=== PATIENT | female | born 1955 | race Caucasian/White ===

== ENCOUNTER 2016-05-29 12:06 | Emergency (ER) | payer OTHER ==
[2016-05-29] MEDS ORDERED: Vancomycin 1GM/ Ns 250ML*** 250 ML IV ONE ×2 (12:46→12:56)
[2016-05-29] MEDS ORDERED: Adacel Vial IM ONE ×2 (12:47→12:57)
--- NOTE | 2016-05-29 12:53 | ERPHSYRPT ---
- History of Present Illness Time Seen by Provider: 05/29/16 12:45 Source: patient Exam Limitations: no limitations Patient Subjective Stated Complaint: CAT BITE ON LEFT HAND ON TUESDAY AND NOW HAVING SWELLING AND REDNESS UP LEFT HAND AND ARM Triage Nursing Assessment: LEFT HAND SWOLLEN AND RED. REDNESS EXTENDS UP ENTIRE ARM. Physician History: This is a 61-year-old white female who arrives with complaint of swelling of her dorsal left hand radiating up her dorsal left forearm with erythema symptoms going on since Tuesday 3 days ago. Patient states she was bitten by a cat she has swelling and erythema on her left dorsal hand and forearm. She denies any other problems she has no vomiting no diarrhea no fevers. Past medical history includes high blood pressure, COPD, hip replacement. Occurred: days ago (3 days ago) Method of Injury: other (bitten by her friend's kitten) Extremities Pain Location: forearm: left, wrist: left, hand: left Modifying Factors: Improves With: nothing Associated Symptoms: other (erythema and mild edema to dorsal left hand and forearm) Allergies/Adverse Reactions: No Known Drug Allergies Allergy (Unverified 05/29/16 12:36) Home Medications: Albuterol 8 gm Mdi Hfa [Ventolin Hfa MDI] 8 gm IH DAILY PRN PRN 05/29/16 [ History] Lisinopril [Zestril] 5 mg PO DAILY 05/29/16 [History] Hx Tetanus, Diphtheria Vaccination/Date Given: No Hx Influenza Vaccination/Date Given: No Hx Pneumococcal Vaccination/Date Given: No - Review of Systems Constitutional: No Fever, No Chills Eyes: No Symptoms Ears, Nose, & Throat: No Symptoms Respiratory: No Cough, No Dyspnea Cardiac: No Chest Pain, No Edema, No Syncope Abdominal/Gastrointestinal: No Abdominal Pain, No Nausea, No Vomiting, No Diarrhea Genitourinary Symptoms: No Dysuria Musculoskeletal: Other (erythema and mild edema dorsal left hand and forearm) Skin: Other (erythema and mild edema dorsal left hand and forearm) Neurological: No Dizziness, No Focal Weakness, No Sensory Changes Psychological: No Symptoms Endocrine: No Symptoms All Other Systems: Reviewed and Negative - Past Medical History Pertinent Past Medical History: Yes Cardiac History: Hypertension Respiratory History: COPD - Past Surgical History Past Surgical History: Yes Musculoskeletal: Joint Replacement Other Surgical History: BILAT HIP REPLACEMENT - Social History Smoking Status: Current every day smoker How long have you smoked: 40 YRS Exposure to second hand smoke: Yes Drug Use: none Patient Lives Alone: No - Nursing Vital Signs Nursing Vital Signs: Initial Vital Signs Temperature 98.9 F Temperature Source Oral Pulse Rate 100 Respiratory Rate 18 Blood Pressure [Right Arm] 150/76 Pain Intensity 8 - Physical Exam General Appearance: alert Eyes, Ears, Nose, Throat Exam: moist mucous membranes Neck Exam: non-tender, supple Cardiovascular/Respiratory Exam: chest non-tender, normal breath sounds, regular rate/rhythm, no respiratory distress Abdominal Exam: non-tender, No guarding Back Exam: normal inspection, No vertebral tenderness Shoulder Exam: normal inspection, non-tender, no evidence of injury, normal ROM Elbow/Forearm Exam: non-tender, no evidence of injury, normal ROM, No normal inspection (erythema and mild edema dorsal left forearmtenderness with palpation ) Wrist Exam: normal inspection, normal ROM Hand Exam: No normal inspection (erythema and mild edema dorsal left hand tender with palpation), No non-tender DTR - Upper Extremity Exam: tricep (R): 2+, tricep (L): 2+ Neuro/Tendon Exam: normal sensation, normal motor functions Mental Status Exam: alert, oriented x 3, cooperative Skin Exam: normal color, warm, dry SpO2 Interpretation: normal (94%) SpO2: 94 Oxygen Delivery: Room Air - Course Nursing assessment & vital signs reviewed: Yes Ordered Tests: Active Orders 24 hr Category Date Time Status IV Insertion STAT Care 05/29/16 12:46 Active BLOOD CULTURE Stat Lab 05/29/16 13:00 Received BMP Stat Lab 05/29/16 13:05 Completed CBC W DIFF Stat Lab 05/29/16 13:05 Completed Manual Differential NC Stat Lab 05/29/16 13:05 Completed Medication Summary Generic Name Dose Route Start Last Admin Trade Name Freq PRN Reason Stop Dose Admin Vancomycin HCl 250 mls @ 167 mls/hr 05/29/16 12:46 05/29/16 13:04 Vancomycin 1gm/ Ns 250ml IV 05/29/16 14:15 167 mls/hr STAT ONE Administration Discontinued Medications Generic Name Dose Route Start Last Admin Trade Name Freq PRN Reason Stop Dose Admin Diphtheria/Tetanus/Acell Pertussis 0.5 ml 05/29/16 12:47 05/29/16 13:04 Adacel Vial IM 05/29/16 12:48 0.5 ml .ONCE ONE Administration Diphtheria/Tetanus/Acell Pertussis Confirm 05/29/16 12:57 Adacel Vial Administered 05/29/16 12:58 Dose 0.5 ml IM .STK-MED ONE Vancomycin HCl Confirm 05/29/16 12:56 Vancomycin 1gm/ Ns 250ml Administered 05/29/16 12:57 Dose 250 mls @ ud IV .STK-MED ONE Sodium Chloride 500 mls @ 999 mls/hr 05/29/16 12:58 05/29/16 13:04 Sodium Chloride 0.9% 1000 Ml IV 05/29/16 13:28 999 mls/hr .Q31M STA Administration Sodium Chloride Confirm 05/29/16 13:02 Sodium Chloride 0.9% 1000 Ml Administered 05/29/16 13:03 Dose 1,000 mls @ ud .ROUTE .STK-MED ONE Lab/Rad Data: Laboratory Result Diagrams 05/29/16 13:05 05/29/16 13:05 Laboratory Results 05/29/16 05/29/16 Range/Units 13:05 13:05 WBC 7.8 (4.0-10.5) K/mm3 RBC 3.45 L (4.1-5.4) M/mm3 Hgb 13.7 (12.0-16.0) gm/dl Hct 40.3 (35-47) % MCV 116.8 H (78-100) fl MCH 39.7 H (26-32) pg MCHC 34.0 (32-36) g/dl RDW 13.8 (11.5-14.0) % Plt Count 87 L (150-450) K/mm3 MPV 10.3 H (6-9.5) fl Segmented Neutrophils 81 H (36.0-66.0) % Band Neutrophils 2 (0.0-2.0) % Lymphocytes (Manual) 5 L (24-44) % Monocytes (Manual) 12 (0.0-12.0) % Differential Comment NORMAL Platelet Estimate DECREASED (NORMAL) Sodium 132 L (136-145) mEq/L Potassium 3.5 (3.5-5.1) mEq/L Chloride 96 L (98-107) mEq/L Carbon Dioxide 25.3 (21-32) mEq/L Anion Gap 14.0 (5-15) MEQ/L BUN 7 L (9-20) mg/dL Creatinine 0.61 (0.55-1.30) mg/dl Estimated GFR > 60 ML/MIN Glucose 154 H (70-110) MG/DL Calcium 8.4 L (8.5-10.1) mg/dL - Progress Progress: improved Progress Note: 05/29/16 12:51 This is a 61-year-old white female with history of high blood pressure she arrives with complaint of erythema and mild edema to her left dorsal hand and forearm symptoms for 3 days she states she was bitten by a small kitten 3 days ago. She is tender with palpation in the above-mentioned area. There is erythema to the dorsal left hand and forearm the area is not hot. There is slight edema in the area. She has erythema which extends up to the left dorsal elbow. Will go ahead and obtain CBC BMP blood cultures will give patient vancomycin 1 g IV. Anticipate home with Augmentin 500 mg orally 3 times a day for 10 days. Patient will be given a list of local physicians for follow-up. 05/29/16 13:46 Patient apparently is on lisinopril 5 mg a day. Will go ahead and give her lisinopril 5 mg #10 as a courtesy. She apparently is out of her blood pressure medications. 05/29/16 13:52 will also write for the patients albuterol inhaler as a courtesy. - Departure Time of Disposition: 13:45 Departure Disposition: Home Clinical Impression: Cellulitis and abscess of hand, Cellulitis of forearm Cat bite of left hand Qualifiers: Encounter type: initial encounter Qualified Code(s): S61.452A - Open bite of left hand, initial encounter Condition: Fair Critical Care Time: No Instructions: Animal Bites Additional Instructions: Return home. Plenty of fluids. Augmentin 500 mg orally 3 times a day for 10 days. Follow-up with your family doctor (list). Return for acute distress or for severe symptoms.
[2016-05-29] MEDS ORDERED: Sodium Chloride 0.9% 1000 ML 1,000 ML ONE (13:02)
[2016-05-29 13:15] LABS: Mean Cell Volume 116.8 fl (78-100); Mean Corpuscular Hemoglobin 39.7 pg (26-32); Mean Platelet Volume 10.3 fl (6-9.5); Platelet Count 87 K/mm3 (150-450); Red Blood Count 3.45 M/mm3 (4.1-5.4); Red Cell Distribution Width 13.8 % (11.5-14.0); White Blood Count 7.8 K/mm3 (4.0-10.5)
[2016-05-29 13:34] LABS: BLOOD UREA NITROGEN 7 mg/dL (9-20); CHLORIDE 96 mEq/L (98-107); Carbon Dioxide 25.3 mEq/L (21-32); Glucose 154 MG/DL (70-110); Potassium 3.5 mEq/L (3.5-5.1); SODIUM 132 mEq/L (136-145)
[2016-05-29 13:47] LABS: BAND 2 % (0.0-2.0); Platelet Estimate DECREASED (NORMAL); Total Cells Counted 100
[2016-05-29 15:06] VITALS: BP 132/72; PULSE 98; O2SAT 98
== END 2016-05-29 15:13 | disposition home or self-care (01) ==
LOC: ED 12:06
DX: S61.452A Open bite of left hand, initial encounter (principal); L02.512 Cutaneous abscess of left hand; L03.114 Cellulitis of left upper limb; W55.01XA Bitten by cat, initial encounter
CPT/HCPCS: 36000; 36415; 80048; 85025; 87040; 90471; 90715; 96360; 96361; 96365; 96367; 99283; J3370

== ENCOUNTER 2016-08-19 15:19 | Emergency (ER) | payer OTHER ==
--- NOTE | 2016-08-19 15:57 | ERPHSYRPT ---
- History of Present Illness Time Seen by Provider: 08/19/16 15:46 Source: patient Patient Subjective Stated Complaint: mid nonradiating back pain for 2 days Triage Nursing Assessment: mid nonradiating back pain for 2 days. went to yesterday for cellulitis to rt lower extrem and when she got home had mid lower back pain. denies injury. abd firm and distended--hx ascites with last tap approx one month ago. no fever. 'i get this back pain when i have extra fluid on board' Physician History: State mid back pain began yesterday, spasm, non-radiating, similar to previous but not quite as severe. Pt. with liver cirrhosis but stopped drinking 3 months ago. Pt. saw [facility] for cellulitist and recent wt. gain of 30lbs over past couple weeks. Pt. with abdominal paracentisis, in which 5 L was taken off at [facility] 3-4 weeks ago. No recent fever, chills, but noted nasal congestion and dry cough. Stated increase pain with difficulty ambulating, in which she usually uses a can/walker. Denies any chest pain, but noted some SOB, but no dizziness or weakness. Pt. lives with her sister. R lower extremity with swelling/redness of entire leg. Timing/Duration: day(s) (2), constant, gradual onset Method of Injury: unknown Quality: pressure Back Pain Location: T-spine, lumbar spine Severity of Pain-Max: moderate Severity of Pain-Current: moderate Modifying Factors: Improves With: immobilization (improves), movement (worsens) Associated Symptoms: numbness in legs/feet, lower back pain, muscle spasms, No fever, No chills, No urinary incontinence, No loss of bowel control, No problems urinating, No dizziness Previous symptoms: same symptoms as today Allergies/Adverse Reactions: No Known Drug Allergies Allergy (Unverified 08/19/16 15:25) Home Medications: Fluticasone/Vilanterol [Breo Ellipta 100-25 Mcg INH] 1 each IH DAILY 08/19/16 [ History] Furosemide 20 mg [Lasix 20 mg] 20 mg PO BID 08/19/16 [History] Lactulose [Lactulose 20 gm/30Ml Ud Cup] 10 gm PO TID 08/19/16 [History] Melatonin 3 mg PO HS 08/19/16 [History] Midodrine HCl 5 mg [Proamatine 5 mg] 5 mg PO BID 08/19/16 [History] Omeprazole 20 MG [Prilosec 20 mg] 20 mg PO BID 08/19/16 [History] Prednisone 10 mg [Deltasone 10 mg] 10 mg PO DAILY 08/19/16 [History] Rifaximin [Xifaxan] 550 mg PO BID 08/19/16 [History] Spironolactone 50 mg PO DAILY 08/19/16 [History] Tiotropium [place] Inhaler [Spiriva 18 Mcg/Cap Inhaler] 1 ea IH DAILY 02/25 [History] Hx Tetanus, Diphtheria Vaccination/Date Given: Yes Hx Influenza Vaccination/Date Given: No Hx Pneumococcal Vaccination/Date Given: No Immunizations Up to Date: Yes - Review of Systems Constitutional: Weakness, No Fever, No Chills Eyes: No Symptoms Ears, Nose, & Throat: Nose Congestion, Nose Discharge, No Loose Teeth, No Throat Swelling Respiratory: Cough, Dyspnea Cardiac: No Chest Pain, No Edema, No Syncope Abdominal/Gastrointestinal: Abdominal Pain, Nausea, Other (Distention), No Vomiting, No Diarrhea Genitourinary Symptoms: No Symptoms, No Dysuria Musculoskeletal: No Back Pain, No Neck Pain Skin: Cellulitis, No Rash Neurological: No Dizziness, No Focal Weakness, No Sensory Changes Psychological: No Symptoms Endocrine: No Symptoms All Other Systems: Reviewed and Negative - Past Medical History Pertinent Past Medical History: Yes Cardiac History: Hypertension Respiratory History: COPD Other Medical History: cirrohosis - Past Surgical History Past Surgical History: Yes Musculoskeletal: Joint Replacement Other Surgical History: BILAT HIP REPLACEMENT - Social History Smoking Status: Current every day smoker How long have you smoked: 40 YRS Exposure to second hand smoke: No Drug Use: none Patient Lives Alone: No Significant Family History: no pertinent family hx - Nursing Vital Signs Temperature: 98.2 F Temperature Source: Oral Pulse Rate: 115 Respiratory Rate: 24 Pain Intensity: 10 - Physical Exam General Appearance: mild distress Eye Exam: PERRL/EOMI, eyes nml inspection Ears, Nose, Throat Exam: other (icteric sclera) Neck Exam: normal inspection, non-tender, supple, full range of motion, No meningismus, No midline tenderness Respiratory Exam: normal breath sounds, rhonchi, other (shallow BS), No chest tenderness Cardiovascular Exam: regular rate/rhythm, normal heart sounds Gastrointestinal Exam: tenderness (mild general), distention, No rebound, No hernia Pelvic Exam: not done Rectal Exam: deferred Back Exam: vertebral tenderness (lower thoraci/upper lumbar area), decreased range of motion, muscle spasm, point tenderness Extremity Exam: 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, 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), other (skin warm but difficulty detecting pedal pulses due to edema to R leg) Skin Exam: warm, other (erythema of entire RLE throughout) SpO2 Interpretation: normal SpO2: 100 Oxygen Delivery: Room Air - Radiology Exams L-Spine X-ray Interpretation: Teleradiologist Report, No Fracture T-Spine X-ray Interpretation: Teleradiologist Report, No Fracture Ordered Tests: Active Orders 24 hr Category Date Time Status Cath for Specimen-Straight STAT Care 08/19/16 16:03 Active Catheter-[place] STAT Care 08/19/16 16:03 Active IV Insertion STAT Care 08/19/16 16:03 Active LUMBAR COMPLETE (MIN 4 VIEWS) Stat Exams 08/19/16 16:05 Completed THORACIC SPINE (AP,LAT,SWIMM) Stat Exams 08/19/16 16:05 Completed BMP Stat Lab 08/19/16 16:15 Completed CBC W DIFF Stat Lab 08/19/16 16:15 Completed HEPATIC FUNCTION PANEL Stat Lab 08/19/16 16:15 Completed Manual Differential NC Stat Lab 08/19/16 16:15 Completed UA Stat Lab 08/19/16 17:30 Completed Medication Summary Discontinued Medications Generic Name Dose Route Start Last Admin Trade Name Austinq PRN Reason Stop Dose Admin Hydromorphone HCl 1 mg 08/19/16 16:03 08/19/16 16:21 Hydromorphone 1 Mg/Ml Ampule IV 08/19/16 16:04 1 mg STAT ONE Administration Hydromorphone HCl Confirm 08/19/16 16:14 Hydromorphone 1 Mg/Ml Ampule Administered 08/19/16 16:15 Dose 1 mg .ROUTE .STK-MED ONE Cefazolin Sodium/Dextrose 50 mls @ 100 mls/hr 08/19/16 17:07 08/19/16 17:33 Cefazolin 2 Gm-D5w Bag IV 08/19/16 17:36 100 mls/hr STAT ONE Administration Ceftriaxone Sodium/Dextrose Confirm 08/19/16 17:14 Rocephin 2 Gm-D5w 50ml Bag Administered 08/19/16 17:15 Dose 2 g in 50 mls @ ud IV .STK-MED ONE Cefazolin Sodium/Dextrose Confirm 08/19/16 17:20 Kefzol 1 Gm/50 Ml Premix Administered 08/19/16 17:21 Dose 100 mls @ ud IV .STK-MED ONE Lab/Rad Data: Laboratory Result Diagrams 08/19/16 16:15 08/19/16 16:15 Laboratory Results 08/19/16 08/19/16 08/19/16 Range/Units 17:30 16:15 16:15 WBC 5.5 (4.0-10.5) K/mm3 RBC 2.42 L (4.1-5.4) M/mm3 Hgb 9.8 L (12.0-16.0) gm/dl Hct 29.1 L (35-47) % MCV 120.2 H (78-100) fl MCH 40.4 H (26-32) pg MCHC 33.7 (32-36) g/dl RDW 14.9 H (11.5-14.0) % Plt Count 87 L (150-450) K/mm3 MPV 9.2 (6-9.5) fl Segmented Neutrophils 76 H (36.0-66.0) % Lymphocytes (Manual) 20 L (24-44) % Monocytes (Manual) 3 (0.0-12.0) % Eosinophils (Manual) 1 (0.00-3.0) % Differential Comment ABNORMAL Toxic Granulation 2+ Platelet Estimate DECREASED (NORMAL) Anisocytosis 1+ Macrocytosis 1+ Sodium 131 L (136-145) mEq/L Potassium 3.6 (3.5-5.1) mEq/L Chloride 96 L (98-107) mEq/L Carbon Dioxide 26.6 (21-32) mEq/L Anion Gap 11.7 (5-15) MEQ/L BUN 26 H (9-20) mg/dL Creatinine 1.42 H (0.55-1.30) mg/dl Estimated GFR 40 ML/MIN Glucose 103 (70-110) MG/DL Calcium 8.9 (8.5-10.1) mg/dL Total Bilirubin 5.7 H (0.2-1.0) mg/dL Direct Bilirubin 3.75 H (0.0-0.2) MG/DL AST 43 H (15-37) U/L ALT 41 (12-78) U/L Alkaline Phosphatase 305 H (46-116) U/L Serum Total Protein 7.1 (6.4-8.2) gm/dL Albumin 3.0 L (3.4-5.0) g/dL Ur Collection Type CATH Urine Color DARK YELLOW (YELLOW) Urine Appearance CLEAR (CLEAR) Urine pH 5.0 (5-6) Ur Specific [place] 1.010 (1.005-1.025) Urine Protein NEGATIVE (Negative) Urine Glucose (UA) NEGATIVE (NEGATIVE) mg/dL Urine Ketones NEGATIVE (NEGATIVE) Urine Nitrite NEGATIVE (NEGATIVE) Urine Bilirubin SMALL (NEGATIVE) Urine Urobilinogen 0.2 (0-1) mg/dL Urine WBC (Auto) NEGATIVE (NEGATIVE) Urine RBC (Auto) NEGATIVE (0-5) [place]/ul Specimen Received 08/19/16 1750 - Progress Progress: improved Progress Note: 08/19/16 19:11 Pt. given Dilaudid for pain and Ancef for IV abtc. Counseled pt/family regarding: lab results, diagnosis, rad results - Departure Time of Disposition: 19:12 Departure Disposition: Transfer ( [facility]), Extended Care Facility Clinical Impression: Cellulitis of right leg, Liver cirrhosis, Back pain Condition: Stable Critical Care Time: No
[2016-08-19] MEDS ORDERED: Hydromorphone 1 mg/ml Ampule IV ONE ×2 (16:03→21:22)
[2016-08-19] MEDS ORDERED: Hydromorphone 1 mg/ml Ampule ONE ×2 (16:14→21:29)
[2016-08-19 16:28] LABS: Mean Cell Volume 120.2 fl (78-100); Mean Platelet Volume 9.2 fl (6-9.5); Platelet Count 87 K/mm3 (150-450); Red Blood Count 2.42 M/mm3 (4.1-5.4); Red Cell Distribution Width 14.9 % (11.5-14.0); White Blood Count 5.5 K/mm3 (4.0-10.5)
[2016-08-19 16:29] LABS: Mean Corpuscular Hemoglobin 40.4 pg (26-32)
[2016-08-19 16:46] LABS: ANION GAP 11.7 MEQ/L (5-15); BILIRUBIN,TOTAL 5.7 mg/dL (0.2-1.0); Carbon Dioxide 26.6 mEq/L (21-32); Direct Bilirubin 3.75 MG/DL (0.0-0.2); Potassium 3.6 mEq/L (3.5-5.1); Total Protein 7.1 gm/dL (6.4-8.2)
--- NOTE | 2016-08-19 16:52 | XRAY ---
Indication: Back pain. No known injury. Comparison: None Frontal/lateral thoracic spine demonstrates 12 typical rib bearing thoracic vertebral segments in normal alignment with mild osteopenia and remote-appearing T11 superior endplate fracture with less than 20% height loss. Incidental mediastinal calcified nodes. No other bony, articular, or soft tissue abnormalities.
[2016-08-19 16:53] LABS: Eosinophil 1 % (0.00-3.0); Total Cells Counted 100
[2016-08-19 16:54] LABS: ANISOCYTOSIS 1+; Macrocytosis 1+; Platelet Estimate DECREASED (NORMAL); Toxic Granulation 2+
--- NOTE | 2016-08-19 16:54 | XRAY ---
Indication: Back pain. No known injury. Comparison: None 5 views of the lumbar spine demonstrates 5 lumbar vertebral segments in normal alignment with mild osteopenia, mild L4-S1 disc space narrowing, bilateral L4-S1 degenerative facet arthropathy, remote appearing L4 superior endplate fracture with approximately 25% height loss, previous bilateral hip arthroplasty, and moderate aortoiliac calcifications. No acute fracture or subluxation. Impression: Nonacute lumbar spine with chronic features.
[2016-08-19] MEDS ORDERED: CEFAZOLIN 2 GM-D5W BAG** 50 ML IV ONE (17:07)
[2016-08-19] MEDS ORDERED: ROCEPHIN 2 Gm-D5w 50ML BAG** 0 G/0 ML IVPB IV ONE (17:14)
[2016-08-19] MEDS ORDERED: KEFZOL 1 GM/50 ML PREMIX** 50 ML IV ONE (17:20)
[2016-08-19 17:55] LABS: COMPLETE URINE MICROSCOPIC? NO; Collection Type CATH
[2016-08-19 19:48] VITALS: BP 161/83; PULSE 114; O2SAT 98
[2016-08-19] MEDS ORDERED: Phenergan 25 MG INJ IV ONE (21:22)
[2016-08-19] MEDS ORDERED: Phenergan 25 MG INJ ONE (21:29)
== END 2016-08-20 00:19 | disposition short-term general hospital (02) ==
LOC: ED 15:19
DX: L03.115 Cellulitis of right lower limb (principal); K74.60 Unspecified cirrhosis of liver; M54.9 Dorsalgia, unspecified; M54.89 Other dorsalgia; Z79.899 Other long term (current) drug therapy
CPT/HCPCS: 36000; 36415; 51702; 72072; 72110; 80048; 80076; 81002; 85025; 96365; 96374; 96375; 96376; 99285; J0690; J0696; J1170; J2550; P9612

== ENCOUNTER 2016-09-12 14:42 | Observation (INO) | payer OTHER ==
[2016-09-12] MEDS ORDERED: BUMEX 1 MG IV ONE ×2 (15:21→18:01)
[2016-09-12] MEDS ORDERED: BUMEX 1 MG ONE ×2 (15:39→18:11)
[2016-09-12 15:42] LABS: ADD URINE CULTURE? NO (NO); COMPLETE URINE MICROSCOPIC? NO; Collection Type CATH; Ph 5.5 (5-6)
[2016-09-12 15:45] LABS: BASOPHIL % 0.3 % (0.0-0.4); Eosinophil % 1.4 % (0.00-5.0); Granulocytes % 71.2 % (36.0-66.0); Lymphocytes % 12.5 % (24.0-44.0); Mean Cell Volume 115.8 fl (78-100); Mean Corpuscular Hemoglobin 39.2 pg (26-32); Mean Platelet Volume 9.5 fl (6-9.5); Monocytes % 14.6 % (0.0-12.0); Platelet Count 146 K/mm3 (150-450); Red Cell Distribution Width 13.8 % (11.5-14.0); White Blood Count 8.6 K/mm3 (4.0-10.5)
[2016-09-12 16:06] LABS: ALBUMIN 2.5 g/dL (3.4-5.0); ALKALINE PHOSPHATASE 290 U/L (46-116); BLOOD UREA NITROGEN 27 mg/dL (9-20); CHLORIDE 94 mEq/L (98-107); Carbon Dioxide 23.5 mEq/L (21-32); Glucose 113 MG/DL (70-110); LIPASE 340 U/L (73-393); Potassium 3.5 mEq/L (3.5-5.1); SGOT/AST 45 U/L (15-37); SGPT/ALT 22 U/L (12-78); SODIUM 129 mEq/L (136-145); Total Protein 7.1 gm/dL (6.4-8.2)
[2016-09-12 16:11] LABS: TROPONIN < 0.017 ng/ml (0.000-0.056)
[2016-09-12] MEDS ORDERED: Enulose 10 GM/15 ML PO STA (16:27)
[2016-09-12] MEDS ORDERED: Vancomycin 1GM/ Ns 250ML*** 1 GM/250 ML IVPB IV ONE (16:28)
[2016-09-12] MEDS ORDERED: LACTULOSE 20 GM/30ML UD CUP ONE ×2 (16:49→21:40)
[2016-09-12] MEDS ORDERED: Vancomycin 1GM/ Ns 250ML*** 250 ML IV ONE (16:52)
[2016-09-12] MEDS ORDERED: DUONEB 0.5-3 MG/3 ml Neb IH ONE ×2 (18:01→18:14)
--- NOTE | 2016-09-12 18:01 | ERPHSYRPT ---
- History of Present Illness Time Seen by Provider: 09/12/16 15:00 Historian: patient Exam Limitations: clinical condition Patient Subjective Stated Complaint: increased swelling and leaking of bilat lower extrem Triage Nursing Assessment: pt states she has increased fluid draining off of rt lower leg. saw dr tinajero on tuesday and legs were the same as far as size but rt lower leg is leaking and wasnt on tuesday. redness noted to lt lower leg. pedal pulses faint but present. abd firm and round. bs present. last paracentesis was 1 month ago Physician History: PATIENT WITH HISTORY CIRRHOSIS, [facility], STATES SHE HAS BEEN OF HER DIURETICS FOR 1 WEEK, COMPLAINS OF MARKED SWELLING IN LEGS WITH INCREASING ABDOMINAL ASCITES. HAS DYSPNEA UPON EXERTION. DENIES CHEST PAIN, DIAPHORESIS. Timing/Duration: day(s) Activities at Onset: activity Abdominal Pain Onset Location: other (INCREASED ASCITES) Severity of Pain-Max: mild Severity of Pain-Current: mild Modifying Factors: Improves With: movement Associated Symptoms: shortness of breath, other (GENERALIZED SWELLING) Previous symptoms: same symptoms as today Allergies/Adverse Reactions: No Known Drug Allergies Allergy (Unverified 09/12/16 14:55) Home Medications: Furosemide 20 mg [Lasix 20 mg] 20 mg PO BID 08/19/16 [History] Lactulose [Lactulose 20 gm/30Ml Ud Cup] 10 gm PO TID 08/19/16 [History] Melatonin 3 mg PO HS 08/19/16 [History] Midodrine HCl 5 mg [Proamatine 5 mg] 5 mg PO BID 08/19/16 [History] Omeprazole 20 MG [Prilosec 20 mg] 20 mg PO BID 08/19/16 [History] Rifaximin [Xifaxan] 550 mg PO BID 08/19/16 [History] Spironolactone 50 mg PO DAILY 08/19/16 [History] Tiotropium [place] Inhaler [Spiriva 18 Mcg/Cap Inhaler] 1 ea IH DAILY 02/25 [History] Hx Tetanus, Diphtheria Vaccination/Date Given: Yes Hx Influenza Vaccination/Date Given: No Hx Pneumococcal Vaccination/Date Given: No - Review of Systems Constitutional: No Fever, No Chills Eyes: No Symptoms Ears, Nose, & Throat: No Symptoms Respiratory: No Cough, No Dyspnea Cardiac: No Chest Pain, No Edema, No Syncope Abdominal/Gastrointestinal: Other (ASCITES), No Abdominal Pain, No Nausea, No Vomiting, No Diarrhea Genitourinary Symptoms: No Dysuria Musculoskeletal: Other (SWELLING IN LEGS), No Back Pain, No Neck Pain Skin: No Rash Neurological: No Dizziness, No Focal Weakness, No Sensory Changes Psychological: No Symptoms Endocrine: No Symptoms All Other Systems: Reviewed and Negative - Past Medical History Pertinent Past Medical History: Yes Cardiac History: Hypertension Respiratory History: COPD Other Medical History: cirrohosis - Past Surgical History Past Surgical History: Yes Musculoskeletal: Joint Replacement Other Surgical History: BILAT HIP REPLACEMENT - Social History Smoking Status: Current every day smoker How long have you smoked: 40 YRS Exposure to second hand smoke: No Drug Use: none Patient Lives Alone: No Significant Family History: no pertinent family hx - Nursing Vital Signs Nursing Vital Signs: Initial Vital Signs Temperature 98.2 F Temperature Source Oral Pulse Rate 125 Respiratory Rate 28 Blood Pressure [] 128/63 Pain Intensity 2 - Physical Exam General Appearance: mild distress Eye Exam: PERRL/EOMI, eyes nml inspection Ears, Nose, Throat Exam: normal ENT inspection, pharynx normal, moist mucous membranes Neck Exam: normal inspection, non-tender, supple, full range of motion Respiratory Exam: normal breath sounds, lungs clear, diminished breath sounds, crackles/rales (AT BASES), No respiratory distress Cardiovascular Exam: regular rate/rhythm, normal heart sounds Gastrointestinal/Abdomen Exam: soft, normal bowel sounds, other (DIFFUSE ASCITES WITH DISTENSION, NONTENDER), No tenderness, No mass Back Exam: normal inspection, normal range of motion, No CVA tenderness, No vertebral tenderness Extremity Exam: normal inspection, normal range of motion, pelvis stable Neurologic Exam: alert, oriented x 3, cooperative, normal mood/affect, nml cerebellar function, sensation nml, No motor deficits Skin Exam: normal color, warm, dry SpO2: 100 Oxygen Delivery: Room Air - Course EKG Interpreted by Me: RATE, Sinus Tach, NORMAL AXIS, Non-specific ST Changes - Radiology Exams Chest X-ray Interpretation: Discussed w/ radiologist (BILATERAL PLEURAL EFFUSIONS) Ordered Tests: Active Orders 24 hr Category Date Time Status EKG-ER Only STAT Care 09/12/16 15:21 Active EKG-ER Only STAT Care 09/12/16 18:22 Active Jensen [Catheter-[place] Jensen] STAT Care 09/12/16 15:20 Active IV Insertion STAT Care 09/12/16 15:17 Active CHEST 1 VIEW (PORTABLE) Stat Exams 09/12/16 15:18 Completed AMYLASE Stat Lab 09/12/16 15:25 Completed BLOOD CULTURE Stat Lab 09/12/16 15:31 Received CBC W DIFF Stat Lab 09/12/16 15:25 Completed CMP Stat Lab 09/12/16 15:25 Completed Ethyl Alcohol,Urine Stat Lab 09/12/16 15:25 Completed LIPASE Stat Lab 09/12/16 15:25 Completed TROPONIN Stat Lab 09/12/16 15:25 Completed UA W/RFX UR CULTURE Stat Lab 09/12/16 15:25 Completed Respiratory Nebulizer STAT RT 09/12/16 18:01 Completed Respiratory Nebulizer UD RT 09/12/16 19:10 Completed Transfer Order Routine Transfer 09/12/16 15:20 Ordered Medication Summary Discontinued Medications Generic Name Dose Route Start Last Admin Trade Name Freq PRN Reason Stop Dose Admin Albuterol/Ipratropium 3 ml 09/12/16 18:01 09/12/16 18:15 Duoneb 0.5-3 Mg/3 Ml Neb IH 09/12/16 18:02 3 ml STAT ONE Administration Albuterol/Ipratropium Confirm 09/12/16 18:14 Duoneb 0.5-3 Mg/3 Ml Neb Administered 09/12/16 18:15 Dose 3 ml IH .STK-MED ONE Bumetanide 1 mg 09/12/16 15:21 09/12/16 15:40 Bumex 1 Mg IV 09/12/16 15:22 1 mg STAT ONE Administration Bumetanide Confirm 09/12/16 15:39 Bumex 1 Mg Administered 09/12/16 15:40 Dose 1 mg .ROUTE .STK-MED ONE Bumetanide 1 mg 09/12/16 18:01 09/12/16 18:12 Bumex 1 Mg IV 09/12/16 18:02 1 mg STAT ONE Administration Bumetanide Confirm 09/12/16 18:11 Bumex 1 Mg Administered 09/12/16 18:12 Dose 1 mg .ROUTE .STK-MED ONE Vancomycin HCl 1 gm in 250 mls @ 167 mls/hr 09/12/16 16:28 09/12/16 16:56 Vancomycin 1gm/ Ns 250ml IV 09/12/16 17:57 167 mls/hr STAT ONE Administration Vancomycin HCl Confirm 09/12/16 16:52 Vancomycin 1gm/ Ns 250ml Administered 09/12/16 16:53 Dose 250 mls @ ud IV .STK-MED ONE Lactulose 30 g 09/12/16 16:27 09/12/16 16:53 Enulose 10 Gm/15 Ml PO 09/12/16 16:28 30 g STAT STA Administration Lactulose Confirm 09/12/16 16:49 Lactulose 20 Gm/30ml Ud Cup Administered 09/12/16 16:50 Dose 40 gm .ROUTE .STK-MED ONE Levalbuterol HCl 1.25 mg 09/12/16 18:50 09/12/16 19:10 Xopenex 1.25 Mg/0.5 Ml Ud Nebule IH 09/12/16 18:51 1.25 mg STAT ONE Administration Levalbuterol HCl Confirm 09/12/16 19:02 Xopenex 1.25 Mg/0.5 Ml Ud Nebule Administered 09/12/16 19:03 Dose 1.25 mg IH .STK-MED ONE Sodium Chloride Confirm 09/12/16 19:02 Sodium Chloride 3 Ml Ud Nebules Administered 09/12/16 19:03 Dose 3 ml IH .STK-MED ONE Lab/Rad Data: Laboratory Result Diagrams 09/12/16 15:25 09/12/16 15:25 Laboratory Results 09/12/16 09/12/16 09/12/16 Range/Units 15:25 15:25 15:25 WBC (4.0-10.5) K/mm3 RBC (4.1-5.4) M/mm3 Hgb (12.0-16.0) gm/dl Hct (35-47) % MCV (78-100) fl MCH (26-32) pg MCHC (32-36) g/dl RDW (11.5-14.0) % Plt Count (150-450) K/mm3 MPV (6-9.5) fl Gran % (36.0-66.0) % Lymphocytes % (24.0-44.0) % Monocytes % (0.0-12.0) % Eosinophils % (0.00-5.0) % Basophils % (0.0-0.4) % Basophils # (0-0.4) Sodium (136-145) mEq/L Potassium (3.5-5.1) mEq/L Chloride (98-107) mEq/L Carbon Dioxide (21-32) mEq/L Anion Gap (5-15) MEQ/L BUN (9-20) mg/dL Creatinine (0.55-1.30) mg/dl Estimated GFR ML/MIN Glucose (70-110) MG/DL Calcium (8.5-10.1) mg/dL Total Bilirubin (0.2-1.0) mg/dL AST (15-37) U/L ALT (12-78) U/L Alkaline Phosphatase (46-116) U/L Ammonia 58 H (11-32) MMOL/l Troponin I (0.000-0.056) ng/ml Serum Total Protein (6.4-8.2) gm/dL Albumin (3.4-5.0) g/dL Amylase (25-115) U/L Lipase (73-393) U/L Ur Collection Type CATH Urine Color YELLOW (YELLOW) Urine Appearance CLEAR (CLEAR) Urine pH 5.5 5.5 (5-6) Ur Specific [place] 1.010 (1.005-1.025) Urine Protein NEGATIVE (Negative) Urine Glucose (UA) NEGATIVE (NEGATIVE) mg/dL Urine Ketones NEGATIVE (NEGATIVE) Urine Nitrite NEGATIVE (NEGATIVE) Urine Bilirubin NEGATIVE (NEGATIVE) Urine Urobilinogen 0.2 (0-1) mg/dL Urine WBC (Auto) NEGATIVE (NEGATIVE) Urine RBC (Auto) NEGATIVE (0-5) [place]/ul Urine Ethyl Alcohol 2 (0.00-20) mg/dl Specimen Received 09/12/16 1540 09/12/16 09/12/16 Range/Units 15:25 15:25 WBC 8.6 (4.0-10.5) K/mm3 RBC 2.60 L (4.1-5.4) M/mm3 Hgb 10.2 L (12.0-16.0) gm/dl Hct 30.1 L (35-47) % MCV 115.8 H (78-100) fl MCH 39.2 H (26-32) pg MCHC 33.9 (32-36) g/dl RDW 13.8 (11.5-14.0) % Plt Count 146 L (150-450) K/mm3 MPV 9.5 (6-9.5) fl Gran % 71.2 H (36.0-66.0) % Lymphocytes % 12.5 L (24.0-44.0) % Monocytes % 14.6 H (0.0-12.0) % Eosinophils % 1.4 (0.00-5.0) % Basophils % 0.3 (0.0-0.4) % Basophils # 0.03 (0-0.4) Sodium 129 L (136-145) mEq/L Potassium 3.5 (3.5-5.1) mEq/L Chloride 94 L (98-107) mEq/L Carbon Dioxide 23.5 (21-32) mEq/L Anion Gap 15.0 (5-15) MEQ/L BUN 27 H (9-20) mg/dL Creatinine 1.53 H (0.55-1.30) mg/dl Estimated GFR 37 ML/MIN Glucose 113 H (70-110) MG/DL Calcium 8.4 L (8.5-10.1) mg/dL Total Bilirubin 3.50 H (0.2-1.0) mg/dL AST 45 H (15-37) U/L ALT 22 (12-78) U/L Alkaline Phosphatase 290 H (46-116) U/L Ammonia (11-32) MMOL/l Troponin I < 0.017 (0.000-0.056) ng/ml Serum Total Protein 7.1 (6.4-8.2) gm/dL Albumin 2.5 L (3.4-5.0) g/dL Amylase 137 H (25-115) U/L Lipase 340 (73-393) U/L Ur Collection Type Urine Color (YELLOW) Urine Appearance (CLEAR) Urine pH (5-6) Ur Specific [place] (1.005-1.025) Urine Protein (Negative) Urine Glucose (UA) (NEGATIVE) mg/dL Urine Ketones (NEGATIVE) Urine Nitrite (NEGATIVE) Urine Bilirubin (NEGATIVE) Urine Urobilinogen (0-1) mg/dL Urine WBC (Auto) (NEGATIVE) Urine RBC (Auto) (0-5) [place]/ul Urine Ethyl Alcohol (0.00-20) mg/dl Specimen Received - Progress Progress Note: 09/12/16 19:27 PATIENT GIVEN SALINE LOCK, BUMEX 1MG IV X 2, AFTER 2 SETS OF BLOOD CULTURES VANCOMYCIN 1GM IVPB ADMINISTERED 09/12/16 19:28 PATIENT DEVELOPED INCREASED DYSPNEA, ADMINISTERED DUONEB AEROSOL FOLLOWED BY XOPENENEX 1.25MG AEROSOL TREATMENT. DIURESIS OF 900ML Discussed with Dr.: Tinajero (DISCUSSED WITH DR TINAJERO AT 1830 FOR ICU ADMISSION) - Departure Time of Disposition: 19:45 Departure Disposition: In-patient Admission Clinical Impression: ACUTE DYSPNEA/PLEURAL EFFUSIONS, ENSTAGE LIVER DISEASE WITH ANASARCA Condition: Critical Critical Care Time: No Referrals: ADAMS TINAJERO [Primary Care Provider] -
[2016-09-12] MEDS ORDERED: Xopenex 1.25 MG/0.5 ML UD NEBULE IH ONE ×2 (18:50→19:02)
[2016-09-12] MEDS ORDERED: Sodium Chloride 3 ML UD NEBULES IH ONE ×2 (19:02→23:07)
--- NOTE | 2016-09-12 19:06 | XRAY ---
Indication: Cough and dyspnea. Comparison: None Portable apical lordotic chest demonstrates moderate bilateral pleural effusions, right greater than left. Heart is not enlarged for AP portable technique. Right hilar calcified node. Bony thorax intact with mild osteopenia and degenerative changes. Impression: Bilateral effusions without cardiomegaly.
[2016-09-12] MEDS ORDERED: DUONEB 0.5-3 MG/3 ml Neb IH PRN (20:12)
[2016-09-12] MEDS ORDERED: Xopenex 1.25 MG/0.5 ML UD NEBULE IH PRN (20:12)
[2016-09-12] MEDS ORDERED: BUMEX 1 MG IV SCH (20:12)
[2016-09-12] MEDS ORDERED: PROVENTIL COMMON CANISTER IH PRN (21:36)
[2016-09-12] MEDS ORDERED: Spiriva 18 Mcg/Cap Inhaler IH ONE (21:56)
[2016-09-12] MEDS ORDERED: Klor Con 10 MEQ PO SCH (22:00)
[2016-09-12] MEDS ORDERED: Enulose 10 GM/15 ML PO SCH (22:00)
[2016-09-12] MEDS ORDERED: Xifaxan 200 MG PO SCH (23:00)
[2016-09-12] MEDS ORDERED: Protonix 40MG Tablet PO SCH (23:00)
[2016-09-12] MEDS ORDERED: PROAMATINE 5 MG PO SCH (23:00)
[2016-09-12] MEDS: Sodium Chloride 3 ML UD NEBULES IH SCH (23:11)
[2016-09-12] MEDS: Xopenex 1.25 MG/0.5 ML UD NEBULE IH SCH (23:11)
[2016-09-13] MEDS: Xopenex 1.25 MG/0.5 ML UD NEBULE IH SCH ×2 (03:15→06:21)
[2016-09-13] MEDS: Sodium Chloride 3 ML UD NEBULES IH SCH ×2 (03:15→06:21)
[2016-09-13 06:47] LABS: Mean Cell Volume 116.2 fl (78-100); Mean Corpuscular Hemoglobin 38.7 pg (26-32); Mean Platelet Volume 9.1 fl (6-9.5); Platelet Count 166 K/mm3 (150-450); Red Blood Count 2.84 M/mm3 (4.1-5.4); Red Cell Distribution Width 13.9 % (11.5-14.0); White Blood Count 10.9 K/mm3 (4.0-10.5)
[2016-09-13] MEDS ORDERED: Advair Hfa 230/21 Mcg COMMON CANISTER IH SCH (07:00)
[2016-09-13 07:31] LABS: ANION GAP 16.9 MEQ/L (5-15); BLOOD UREA NITROGEN 27 mg/dL (9-20); CHLORIDE 95 mEq/L (98-107); Carbon Dioxide 23.4 mEq/L (21-32); Glucose 120 MG/DL (70-110); Potassium 3.3 mEq/L (3.5-5.1); SODIUM 132 mEq/L (136-145)
[2016-09-13 07:33] LABS: TROPONIN < 0.017 ng/ml (0.000-0.056)
[2016-09-13 08:00] VITALS: BP 146/79; O2SAT 99
[2016-09-13 08:22] VITALS: PULSE 114
[2016-09-13] MEDS ORDERED: BUMEX 1 MG IV SCH ×2 (08:30→10:00)
[2016-09-13 08:47] LABS: A-aADO2 79; ARTERIAL BLD GAS O2 SATURATION 98.1 % (95-100); ARTERIAL BLOOD GAS FIO2 30 %; ARTERIAL BLOOD GAS PO2 82 mmHg (75-100); ARTERIAL BLOOD GAS pH 7.34 (7.35-7.45); BIPAP(E) 6; BIPAP(I) 12
[2016-09-13] MEDS ORDERED: solu-MEDROL 125 MG IV ONE (09:11)
--- NOTE | 2016-09-13 09:57 | HP ---
HISTORY OF PRESENT ILLNESS: A 61 year-old patient with history of alcoholic cirrhosis who presented to the emergency department last night. She had recently been seen in the clinic on Tuesday with increased swelling of her legs and some redness of her feet. She had been placed back on her diuretic on 09/08/2016 after recently being at [facility] from 08/20/2016 to 08/30/2016 and her diuretics being held during that hospitalization and then she was to restart some point during the follow up. The patient was instructed on the Tuesday after talking to her newspaper correspondent at , Dr. Felipe Schneider, to go to [facility]. The patient stated that she thought she would have a ride to do this. They told her to call back to the hospital if that did not work out. I also told the patient that she could be seen at our emergency room and transferred by ambulance but she stated she already had one ambulance bill to pay. The patient presented to the emergency department last night with increasing swelling of her legs and erythema of her left leg. Overnight she developed increased dyspnea and was placed on high flow oxygen and then BiPAP this morning. She continued to be short of breath this morning and tachypneic. The emergency department physician said that had accepted her and it appears that she was accepted to a medical/surgical bed but they did not have any beds available so they needed to admit her here so she was admitted here for observation while we waited for a bed. I talked with again and they upgraded her to needing an ICU bed but still no beds available so we continued to wait for this. REVIEW OF SYSTEMS: Unobtainable due to the patient's condition. PAST MEDICAL HISTORY: Chronic kidney disease stage III with history of acute kidney injury, history of cellulitis, alcoholic cirrhosis, history of back pain, thrombocytopenia, chronic obstructive pulmonary disease, hypertension, history of hepatorenal syndrome, history of hyponatremia. PAST SURGICAL HISTORY: Left hip and right hip replacements. Tubal ligation. MEDICATIONS: Albuterol 2 puffs every six hours as needed, Symbicort 2 puffs b.i.d., Lasix 20 mg p.o. b.i.d., lactulose 10 mg p.o. t.i.d., melatonin 3 mg p.o. q.h.s., Midodrine 5 mg p.o. b.i.d., omeprazole 20 mg p.o. b.i.d., rifaxmin 550 mg p.o. b.i.d., Spironolactone 50 mg p.o. daily, Spiriva 1 capsule daily. ALLERGIES: NKDA. SOCIAL HISTORY: She has a history of tobacco use and smokes one pack per day. She lives with her sister. She reports that she quit drinking alcohol May 2016. FAMILY HISTORY: Her mother had diabetes. Her father had heart disease and lung cancer. PHYSICAL EXAMINATION: VITAL SIGNS: Temperature current 96.9F, temperature max 98.2F, heart rate 103 to 125 currently 114, respiratory rate 18 to 34 currently 27, blood pressure 118 to 146 over 63 to 80. Oxygen saturation 90 to 99% currently on BiPAP with 30% oxygen. GENERAL: The patient is sitting up in her chair on BiPAP. She is tachypneic, able to answer some questions through the BiPAP. CVS: Her heart is tachycardic with a regular rhythm. No murmurs, gallops or rubs are appreciated. CHEST: She has scattered wheezes throughout. Equal breath sounds. ABDOMEN: Tense and distended with no guarding, no rigidity. EXTREMITIES: She has +3 pitting edema to above her knees bilaterally, marked erythema of her left lower extremity. LABORATORY DATA AND TESTS: Her white blood cell count was 8.6 in the emergency department and 10.9 now, hemoglobin 11, glucose 120, PLT count 166,000. Sodium 129 in the emergency room and 132 now. Potassium 3.5 in the emergency room and 3.3 now. Creatinine 1.62 with glomerular filtration rate of 34. BNP 571. Two troponins have been negative. UA was negative. She had chest x-ray that was read as bilateral effusions without cardiomegaly. ASSESSMENT AND PLAN: 1) Anasarca with end stage liver disease: She was started on Bumex 1 mg IV every 12 hours. I changed this to 1 mg IV every 8 hours. A bed for transfer has been requested from . 2) Dyspnea: History of chronic obstructive pulmonary disease. I am going to go ahead and start her on some IV steroids, continue the BiPAP. She had blood gas on that with pH of 7.34, pCO2 42, pO2 of 82. Continue with breathing treatments as needed and oxygen. 3) Chronic kidney disease stage III. Will need to watch this carefully and again she is planning to be transferred to [facility] and will be able to see her kidney specialist there. 4) Cellulitis: She has been started on Vancomycin and I plan to continue with this.
[2016-09-13] MEDS ORDERED: Aldactone 25 MG PO SCH (10:00)
[2016-09-13] MEDS ORDERED: LACTULOSE 20 GM/30ML UD CUP PO SCH (10:00)
[2016-09-13] MEDS ORDERED: Lasix 40 MG PO SCH (10:00)
[2016-09-13] MEDS ORDERED: PATIENT OWN MEDICATION PO SCH (10:00)
[2016-09-13] MEDS ORDERED: SPIRONOLACTONE 50 MG PO SCH (10:00)
[2016-09-13] MEDS ORDERED: Spiriva 18 Mcg/Cap Inhaler IH SCH (10:00)
[2016-09-13] MEDS ORDERED: solu-MEDROL 125 MG IV SCH (18:00)
== END 2016-09-13 10:10 ==
LOC: ED 14:42 → ICU 19:57
PROVIDERS: ADMIT Internal Medicine; ATTEND Internal Medicine
DX: R60.1 Generalized edema (principal); N18.6 End stage renal disease; J44.9 Chronic obstructive pulmonary disease, unspecified; I12.9 Hypertensive chronic kidney disease with stage 1 through stage 4 chronic kidney disease, or unspecified chronic kidney disease; N18.3 Chronic kidney disease, stage 3 (moderate); L03.90 Cellulitis, unspecified; J90 Pleural effusion, not elsewhere classified; K70.30 Alcoholic cirrhosis of liver without ascites; Z96.642 Presence of left artificial hip joint; Z96.641 Presence of right artificial hip joint; Z79.899 Other long term (current) drug therapy
CPT/HCPCS: 36000; 36415; 36600; 51702; 71010; 80048; 80053; 80320; 81002; 82140; 82150; 82375; 82803; 83690; 83880; 83986; 84484; 85025; 85027; 87040; 93005; 94002; 94640; 94760; 96365; 96374; 96376; 99285; G0378; J2930; J3370; A9270-GY